=== PATIENT | male | born 1980 | race Caucasian/White ===

== ENCOUNTER 2017-06-17 22:20 | Emergency (ER) | payer OTHER ==
[~2017-06-17] VITALS: Ht 172.7 cm; Wt 113.4 kg
[2017-06-17 22:25] VITALS: Ht 172.7 cm; Wt 113.4 kg
[2017-06-17 22:45] LABS: BASOPHIL % 1.3 % (0-2); PLATELET COUNT 293 x10^3mcL (130-400)
[2017-06-17 22:59] LABS: CALCIUM 8.6 mg/dL (8.5-10.1); CARBON DIOXIDE 27.9 mmol/L (21-32); CHLORIDE SERUM 98 mmol/L (98-107); CREATININE SERUM 0.9 mg/dL (0.7-1.3); GFR1 > 60 mL/min; GLUCOSE SERUM 288 mg/dL (74-106); POTASSIUM SERUM 4.1 mmol/L (3.5-5.1); SODIUM SERUM 136 mmol/L (136-145)
[2017-06-17 23:03] LABS: ALBUMIN 3.8 g/dL (3.4-5.0); ALKALINE PHOSPHATASE 115 U/L (46-116); ALT/SGPT 63 U/L (16-63); AMYLASE 96 U/L (25-115); AST/SGOT 42 U/L (15-37); BILIRUBIN TOTAL 0.7 mg/dL (0.20-1.00); LIPASE 1074 IU/L (73-393); TOTAL PROTEIN, SERUM 7.8 g/dL (6.4-8.2)
[2017-06-18 01:14] VITALS: BP 142/90
== END 2017-06-18 01:14 | disposition home or self-care (01) ==
LOC: ED 22:20
PROVIDERS: Emergency Medicine
DX: S02.2XXA Fracture of nasal bones, initial encounter for closed fracture (principal); S06.0X0A Concussion without loss of consciousness, initial encounter; S20.211A Contusion of right front wall of thorax, initial encounter; S00.03XA Contusion of scalp, initial encounter; E11.9 Type 2 diabetes mellitus without complications; V89.2XXA Person injured in unspecified motor-vehicle accident, traffic, initial encounter; Y93.89 Activity, other specified; Y92.89 Other specified places as the place of occurrence of the external cause; Y99.8 Other external cause status
CPT/HCPCS: 83880; J1885; J2270; J2405; J7030; Q9967